=== PATIENT | female | born 1965 | race Caucasian/White ===

== ENCOUNTER 2017-07-20 15:05 | Emergency (ER) | payer OTHER ==
[~2017-07-20] VITALS: Ht 172.7 cm; Wt 70.4 kg
[2017-07-20 15:45] LABS: HEMATOCRIT 39.2 % (36.0-46.0); HEMOGLOBIN 13.6 G/DL (11.9-15.5); MCH 31.8 PG (29.0-34.0); MCHC 34.7 G/DL (30.0-36.0); MCV 91.6 FL (83-99); PLATELET COUNT 266 K/uL (156-360); RBC DIS.WIDTH-CV 11.8 % (11.8-14.6); RBC DIS.WIDTH-SD 39.6 % (39-53); RED BLOOD COUNT 4.28 M/uL (3.80-5.20); WHITE BLOOD COUNT 8.5 K/uL (4.1-10.2)
[2017-07-20 15:52] LABS: ALBUMIN 4.2 g/dL (3.2-4.8)
[2017-07-20 15:53] LABS: CHLORIDE 105 mEq/L (99-109); SODIUM 136 mEq/L (136-147)
[2017-07-20 15:55] LABS: GLUCOSE 180 mg/dL (70-99); TOTAL PROTEIN 7.3 g/dL (6.4-8.3)
[2017-07-20 15:57] LABS: TOTAL BILIRUBIN 0.6 mg/dL (0.0-1.0)
[2017-07-20 15:58] LABS: ALKALINE PHOSPHATASE 51 IU/L (3-129)
[2017-07-20 15:59] LABS: CREATININE 0.8 mg/dL (0.6-1.3)
[2017-07-20 16:00] LABS: AST (GOT) 17 IU/L (2-34); UREA NITROGEN (BUN) 17 mg/dL (9-23)
[2017-07-20 16:01] LABS: ALT (GPT) 15 IU/L (3-49)
[2017-07-20 16:07] LABS: QUANTITATIVE HCG < 4.0 MIU/ML
[2017-07-20 16:10] LABS: GFR ESTIMATE (CALCULATED) > 59 mL/min/
[2017-07-20 17:35] LABS: APPEARANCE SL.HAZY ((CLEAR)); BILIRUBIN NEGATIVE; BLOOD LARGE; COLOR YELLOW ((YELLOW)); GLUCOSE (STRIP) NEGATIVE; KETONES 20; LEUKOCYTES NEGATIVE; NITRITE NEGATIVE; PROTEIN (STRIP) NEGATIVE; SPECIFIC GRAVITY 1.019 (1.000-1.030); UROBILINOGEN 0.2 MG/DL (0.2-1.0)
[2017-07-20 17:48] LABS: BACTERIA RARE /HPF; EPITHELIAL CELLS 2+ /HPF; MUCUS TRACE /LPF; UCUL ADDED? NO; WHITE BLOOD CELLS 0-5 /HPF (0-5)
[2017-07-20] MEDS ORDERED: ANTIVERT25 MG PO (19:55)
[2017-07-20 20:03] VITALS: BP 105/65
== END 2017-07-20 20:04 | disposition home or self-care (01) ==
LOC: EME 15:05
DX: R42 Dizziness and giddiness (principal); E87.6 Hypokalemia
CPT/HCPCS: 80053; 81003; 84702; 85027; 99281; 99284